=== PATIENT | female | born 1940 | race Caucasian/White ===

== ENCOUNTER → 2016-10-03 | Outpatient (CLI) | payer OTHER ==
--- NOTE | 2016-10-03 13:56 | DX ---
Right Foot , Three History:Pain, possible stress fracture, no known injury, M 79.671 Findings: No fracture line, periosteal reaction or malalignment is identified. Overall mineralization is normal. There is mild hypertrophic change of the medial first metatarsal head. There is localized hypertrophic change on either side of the likely slightly widened first metatarsal-second metatarsal articulation suggesting remote trauma to the Lisfranc's ligament. It is difficult to exclude subtle active erosive disease on either side of this joint. There could also be tiny erosions on either side of the medial aspect of the I cuneiform first metatarsal joint. No metatarsal head or calcaneal eros ions are present. There is no periarticular demineralization or lateral ray deviation. There is conge nital fusion of the fifth DIP joint. Impression: 1. No stress fracture identified. 2. Likely remote trauma to the Lisfranc's ligament area. Correlation with the site of symptoms is hernandez ggested. If this is the area of pain, then consider MRI (without and with contrast) to evaluate for a ctive erosive change. Of course, if there are any old outside x-rays of the foot, we would be happy t o review them to assess for interval change.
== END ==
LOC: BMCIMAGING 13:09
PROVIDERS: ATTEND Nurse Practitioner Adult Health
DX: M79.671 Pain in right foot (principal)

== ENCOUNTER → 2017-12-03 | Outpatient (CLI) | payer OTHER | LOC: FIMAGING 15:45 | PROVIDERS: ATTEND Internal Medicine | DX: Z12.31 Encounter for screening mammogram for malignant neoplasm of breast (principal) ==

== ENCOUNTER → 2018-03-29 | Outpatient (CLI) | payer OTHER | LOC: FIMAGING 12:48 | PROVIDERS: ATTEND Internal Medicine | DX: Z13.820 Encounter for screening for osteoporosis (principal); M85.89 Other specified disorders of bone density and structure, multiple sites; Z78.0 Asymptomatic menopausal state ==

== ENCOUNTER → 2018-07-27 | Outpatient (CLI) | payer OTHER | LOC: BMCIMAGING 14:16 | PROVIDERS: ATTEND Internal Medicine | DX: J98.09 Other diseases of bronchus, not elsewhere classified (principal); R91.8 Other nonspecific abnormal finding of lung field ==

== ENCOUNTER → 2018-08-13 | Outpatient (CLI) | payer OTHER | LOC: FIMAGING 15:34 | PROVIDERS: ATTEND Internal Medicine | DX: R91.8 Other nonspecific abnormal finding of lung field (principal); I70.90 Unspecified atherosclerosis ==

== ENCOUNTER → 2018-11-22 | Outpatient (CLI) | payer OTHER | LOC: FIMAGING 09:46 | PROVIDERS: ATTEND Internal Medicine | DX: R91.1 Solitary pulmonary nodule (principal) ==